=== PATIENT | female | born 2000 | race Two or more races ===

== ENCOUNTER → 2020-03-16 | Outpatient (CLI) | payer OTHER | END | disposition home or self-care (01) | LOC: PRENATAL 10:48 | PROVIDERS: ATTEND Obstetrics & Gynecology Maternal & Fetal Medicine | DX: O35.0XX1 Maternal care for (suspected) central nervous system malformation in fetus, fetus 1 (principal); O35.3XX1 Maternal care for (suspected) damage to fetus from viral disease in mother, fetus 1; O98.512 Other viral diseases complicating pregnancy, second trimester; Z36.89 Encounter for other specified antenatal screening; Z3A.25 25 weeks gestation of pregnancy ==

== ENCOUNTER 2020-05-12 14:49 | Outpatient (CLI) | payer OTHER | END 2020-05-13 11:04 | disposition home or self-care (01) | LOC: OBS/DEL 14:49 | PROVIDERS: ATTEND Obstetrics & Gynecology | DX: O26.843 Uterine size-date discrepancy, third trimester (principal); O36.8130 Decreased fetal movements, third trimester, not applicable or unspecified; Z3A.33 33 weeks gestation of pregnancy; O60.03 Preterm labor without delivery, third trimester; O26.893 Other specified pregnancy related conditions, third trimester; R10.2 Pelvic and perineal pain; O23.43 Unspecified infection of urinary tract in pregnancy, third trimester ==

== ENCOUNTER 2020-06-28 05:50 | Inpatient (IN) | payer OTHER ==
[~2020-06-28] VITALS: Ht 157.5 cm; Wt 60.8 kg
[2020-06-28] MEDS ORDERED: PRENATAL TABLE1 EAC1 PO (08:04)
== END 2020-07-02 11:49 | disposition home or self-care (01) | DRG 788 ==
LOC: LDR 05:50 → OB/GYN 06-29 20:33
PROVIDERS: ADMIT Obstetrics & Gynecology; ATTEND Obstetrics & Gynecology
PROC: 3E033VJ Introduction of Other Hormone into Peripheral Vein, Percutaneous Approach (ICD-10-PCS; 2020-06-28)
PROC: 3E0P7VZ Introduction of Hormone into Female Reproductive, Via Natural or Artificial Opening (ICD-10-PCS; 2020-06-28)
PROC: 4A1HXFZ Monitoring of Products of Conception, Cardiac Rhythm, External Approach (ICD-10-PCS; 2020-06-28)
PROC: 10907ZC Drainage of Amniotic Fluid, Therapeutic from Products of Conception, Via Natural or Artificial Opening (ICD-10-PCS; 2020-06-29)
PROC: 10D00Z1 Extraction of Products of Conception, Low, Open Approach (ICD-10-PCS; principal; 2020-06-29 16:00)
DX: O62.1 Secondary uterine inertia (principal); O64.0XX0 Obstructed labor due to incomplete rotation of fetal head, not applicable or unspecified; O69.1XX0 Labor and delivery complicated by cord around neck, with compression, not applicable or unspecified; O48.0 Post-term pregnancy; Z37.0 Single live birth; Z3A.40 40 weeks gestation of pregnancy; Z20.822 Contact with and (suspected) exposure to COVID-19

== ENCOUNTER 2020-07-06 15:51 | Emergency (ER) | payer OTHER ==
[~2020-07-06] VITALS: Ht 157.5 cm; Wt 55.8 kg
[~2020-07-06 15:51] MED LIST: PRENATAL TABLE1 EAC1 PO
== END 2020-07-06 17:06 | disposition home or self-care (01) ==
LOC: ER 15:51
DX: O86.01 Infection of obstetric surgical wound, superficial incisional site (principal)